=== PATIENT | female | born 1995 | race Two or more races ===

== ENCOUNTER → 2024-01-27 | Outpatient (CLI) | payer BC ==
--- NOTE | 2024-01-27 15:31 | FL ---
EXAMINATION TYPE: FL hysterosalpingography DATE OF EXAM: 01/27/2024 COMPARISON: None HISTORY: Infertility TECHNIQUE: Procedure was explained to the patient was complications of benefits. All questions are an swered. Written and verbal informed consent was obtained. Patient was placed on the fluoroscopy table. Speculum was placed in the cervix localized. Vaginal vau lt was cleansed with Betadine. Catheter was placed and the balloon inflated without difficulty. Under fluoroscopic observation contrast was administered. The balloon was deflated and the catheter withdr awn and additional imaging was performed. Following the. A time prone image was obtained patient disc harge instructions were discussed with the patient. Patient was released in stable condition and tole rated the procedure very well. FINDINGS: Uterus appears normal. There is prominent spill of contrast into the bilateral fallopian tu bes. This extends to the fimbriated ends with free spill into the pelvis. No loculated contrast colle ction is evident on delayed images. IMPRESSION: 1. Normal hysterosalpingogram [facility], , 01/27/2024 3:28 PM
== END | disposition home or self-care (01) ==
LOC: RADUSWWP 13:15
PROVIDERS: ATTEND Obstetrics & Gynecology Obstetrics
DX: Q51.810 Arcuate uterus
CPT/HCPCS: 58340; 74740